=== PATIENT | male | born 2000 | race Caucasian/White ===

== ENCOUNTER 2022-01-28 16:45 | Inpatient (IN) | payer OTHER ==
[~2022-01-28] VITALS: Ht 182.9 cm; Wt 79.4 kg
[2022-01-28 17:39] LABS: HEMATOCRIT 41.3 % (42.0-52.0); HEMOGLOBIN 14.8 g/dl (13.5-17.5); MEAN CORPUSCULAR HEMOGLOBIN 30.1 pg (27.0-33.0); MEAN CORPUSCULAR HGB CONC 35.8 g/dl (32.0-36.5); MEAN CORPUSCULAR VOLUME 84.1 fl (80.0-96.0); PLATELET COUNT, AUTOMATED 270 10^3/uL (150-450); RED BLOOD COUNT 4.91 10^6/uL (4.30-6.10)
[2022-01-28 18:27] LABS: AMPHETAMINES LEVEL URINE NEGATIVE (NEGATIVE); BARBITURATES URINE NEGATIVE (NEGATIVE); BENZODIAZEPINES URINE NEGATIVE (NEGATIVE); CANNABINOIDS URINE NEGATIVE (NEGATIVE); COCAINE METABOLITE URINE NEGATIVE (NEGATIVE); METHADONE URINE NEGATIVE (NEGATIVE); OPIATES URINE NEGATIVE (NEGATIVE); PHENCYCLIDINE URINE NEGATIVE (NEGATIVE)
[2022-01-28 18:37] LABS: ACETAMINOPHEN LEVEL < 2.0 UG/ML (10.0-30.0); ALBUMIN 4.3 GM/DL (3.2-5.2); ALT/SGPT 20 U/L (12-78); BILIRUBIN,DIRECT 0.3 MG/DL (0.0-0.2); BLOOD UREA NITROGEN 9 MG/DL (7-18); CARBON DIOXIDE LEVEL 25 MEQ/L (21-32); CHLORIDE LEVEL 111 MEQ/L (98-107); CREATININE FOR GFR 0.98 MG/DL (0.70-1.30); ETHYL ALCOHOL (ETHANOL) < 0.003 % (0.000-0.010); GLUCOSE, FASTING 87 MG/DL (70-100); POTASSIUM SERUM 3.5 MEQ/L (3.5-5.1); SALICYLATE LEVEL < 1.7 MG/DL (5.0-30.0); SODIUM LEVEL 142 MEQ/L (136-145); TOTAL PROTEIN 7.7 GM/DL (6.4-8.2)
[2022-01-28 20:18] LABS: RSV AMPLIFICATION NEGATIVE (NEGATIVE)
[2022-01-28] MEDS ORDERED: HOME MED LIST COMPLETE! XX SCH (21:55)
[2022-02-03] MEDS ORDERED: OLANZapine ORAL DISINTEGRATING TAB 5MG PO PRN (12:55)
[2022-02-03] MEDS ORDERED: MOM 30ML SUSPENSION UDC PO PRN (12:55)
[2022-02-03] MEDS ORDERED: IBUPROFEN 400MG TAB PO PRN (12:55)
[2022-02-03] MEDS ORDERED: MAALOX 30 ML SUSP *UDC PO PRN (12:55)
[2022-02-03 14:41] VITALS: BP 119/74
[2022-02-03] MEDS ORDERED: traZODone 50 MG TAB PO PRN (23:35)
[2022-02-04 06:39] VITALS: BP 118/69
[2022-02-04 16:38] VITALS: BP 112/75
[2022-02-05 06:33] VITALS: BP 115/66
== END 2022-02-05 15:33 | disposition home or self-care (01) | DRG 881 ==
LOC: M ED 16:45 → M ED INP 16:46 → UNDOADMIN 16:46 → M ED INP 02-03 12:52 → M PSY 02-03 14:49
PROVIDERS: ADMIT Psychiatry & Neurology Psychiatry; ATTEND Psychiatry & Neurology Psychiatry
DX: F32.A Depression, unspecified (principal); R45.851 Suicidal ideations; F32.9 Major depressive disorder, single episode, unspecified; F43.21 Adjustment disorder with depressed mood